=== PATIENT | male | born 1990 | race Caucasian/White ===

== ENCOUNTER 2017-02-02 18:11 | Emergency (ER) | payer OTHER ==
[~2017-02-02] VITALS: Ht 175.3 cm; Wt 77.3 kg
[2017-02-02 19:57] VITALS: BP 107/73
== END 2017-02-02 19:57 | disposition home or self-care (01) ==
LOC: ED 18:11
DX: L60.0 Ingrowing nail (principal)
CPT/HCPCS: J2001

== ENCOUNTER 2017-11-25 20:07 | Emergency (ER) | payer OTHER ==
[~2017-11-25] VITALS: Ht 167.6 cm; Wt 80.7 kg
[2017-11-25 20:34] VITALS: Ht 167.6 cm; Wt 80.7 kg
[2017-11-25 23:33] VITALS: BP 118/79
== END 2017-11-25 23:33 | disposition home or self-care (01) ==
LOC: ED 20:07
DX: S56.911A Strain of unspecified muscles, fascia and tendons at forearm level, right arm, initial encounter (principal); X58.XXXA Exposure to other specified factors, initial encounter; Y93.89 Activity, other specified; Y92.89 Other specified places as the place of occurrence of the external cause; Y99.8 Other external cause status